=== PATIENT | male | born 1990 ===

== ENCOUNTER 2018-03-06 06:34 | Emergency (ER) | payer MEDICAID, OTHER ==
[2018-03-06 06:42] VITALS: BMI 30.4
[2018-03-06 06:45] VITALS: RESP 16; TEMP 98.7
[2018-03-06] MEDS ORDERED: Tetanus Immune Globulin 250 Units Inj IM ONE (07:18)
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
[2018-03-06] MEDS ORDERED: TDAP Vaccine 0.5 mL Syr IM ONE (07:33)
[2018-03-06 09:30] VITALS: O2SAT 99
--- NOTE | 2018-03-06 10:29 | RAD ---
PROCEDURE: Right Index finger radiographs. HISTORY: finger trauma COMPARISON: None. TECHNIQUE: AP radiograph of the right hand, as well as spot oblique and lateral images of index finger were obtained. FINDINGS: RIGHT INDEX FINGER: Normal right index finger, without fracture or focal lesion. Remainder of the right hand (as seen on the AP view) grossly intact. JOINTS: Normal. SOFT TISSUES: Focal soft tissue swelling proximal interphalangeal joint region OTHER FINDINGS: None. IMPRESSION: Soft tissue swelling without acute articular or osseous abnormality.
[2018-03-06 10:46] VITALS: BP 130/80; PULSE 80
== END 2018-03-06 10:01 | disposition home or self-care (01) ==
LOC: ED 06:34
DX: S61.210A Laceration without foreign body of right index finger without damage to nail, initial encounter (principal); W45.8XXA Other foreign body or object entering through skin, initial encounter; Y92.9 Unspecified place or not applicable; Z23 Encounter for immunization

== ENCOUNTER 2018-03-21 14:14 | Emergency (ER) | payer MEDICAID, OTHER ==
[2018-03-21 14:15] VITALS: BMI 30.4
--- NOTE | 2018-03-21 14:31 | ED PDOC ---
Arrival/HPI - General Time Seen by Provider: 03/21/18 14:17 Historian: Patient - History of Present Illness Narrative History of Present Illness (Text): 03/21/18 14:22 27 y/o male, no significant pmh, nkda, here for the suture removal from the rt. hand 2nd digit s/p sutured about 13 days ago. Pt. stated that the wound is healing well and dry, admits feeling stiffing on the rt. hand 2nd digit, no other medical or psychological complaints. Past Medical History - Provider Review Nursing Documentation Reviewed: Yes - Psychiatric Hx Substance Use: No - Anesthesia Hx Anesthesia: No Family/Social History - Physician Review Nursing Documentation Reviewed: Yes Family/Social History: Unknown Family HX Smoking Status: Light Smoker < 10 Cigarettes Daily Hx Alcohol Use: Yes Hx Substance Use: No Allergies/Home Meds Allergies/Adverse Reactions: Allergies retana Allergy (Verified 03/06/18 06:43) SHORTNESS OF BREATH Review of Systems - Review of Systems Constitutional: absent: Fatigue, Fevers Eyes: absent: Vision Changes ENT: absent: Hearing Changes Respiratory: absent: SOB, Cough Cardiovascular: absent: Chest Pain Gastrointestinal: absent: Abdominal Pain, Nausea, Vomiting Musculoskeletal: absent: Arthralgias, Back Pain Skin: Other (suture rt. hand 2nd digit). absent: Rash Neurological: absent: Headache, Dizziness Psychiatric: absent: Anxiety, Depression Physical Exam Vital Signs Reviewed: Yes - Systems Exam Head: Present: Atraumatic, Normocephalic Pupils: Present: PERRL Extroacular Muscles: Present: EOMI Conjunctiva: Present: Normal Mouth: Present: Moist Mucous Membranes Neck: Present: Normal Range of Motion Respiratory/Chest: Present: Clear to Auscultation, Good Air Exchange. No: Respiratory Distress, Accessory Muscle Use Cardiovascular: Present: Regular Rate and Rhythm, Normal S1, S2. No: Murmurs Abdomen: No: Tenderness, Distention, Peritoneal Signs Back: Present: Normal Inspection Upper Extremity: Present: Normal Inspection, Other (Rt. hand 2nd digit: ventral aspect visible 6 sutures with well intact with scarring and thick skin over it, able to bend and extend the rt. hand 2nd digit DIPJ/PIPJ/MCPJ, FROM without limitation, sensation intact but the patient stated that he feels mild decrease sensation on the rt. hand 2nd digit medial aspect, motor 5/5, neurovascular intact. ). No: Cyanosis, Edema Lower Extremity: Present: Normal Inspection. No: Edema Neurological: Present: GCS=15, CN II-XII Intact, Speech Normal, Motor Func Grossly Intact, Gait Normal, Memory Normal Skin: Present: Warm, Dry, Normal Color. No: Rashes Psychiatric: Present: Alert, Oriented x 3, Normal Insight, Normal Concentration Medical Decision Making ED Course and Treatment: 03/21/18 14:37 -6 sutures removed with success, no more remaining suture, will need hand surgeon follow up. -Discharge home with education on follow up with your own pmd and hand specialist within 2 days, return to the ER for any new or worsening signs or symptoms. - PA / MANAGER FAMILY / Resident Statement MD/DO has reviewed & agrees with the documentation as recorded. Disposition/Present on Arrival - Present on Arrival Any Indicators Present on Arrival: No History of DVT/PE: No History of Uncontrolled Diabetes: No Urinary Catheter: No History of Decub. Ulcer: No History Surgical Site Infection Following: None - Disposition Have Diagnosis and Disposition been Completed?: Yes Diagnosis: Encounter for removal of sutures Disposition: HOME/ ROUTINE Disposition Time: 14:38 Patient Plan: Discharge Condition: GOOD Additional Instructions: -Discharge home with education on follow up with your own pmd and hand specialist within 2 days, return to the ER for any new or worsening signs or symptoms. Referrals: Diego Ashley MD [Staff Provider] - Follow up with primary Forms: WORK NOTE
[2018-03-21 14:39] VITALS: BP 120/67; TEMP 98.2
[2018-03-21 14:49] VITALS: PULSE 82; RESP 16; O2SAT 99
== END 2018-03-21 14:49 | disposition home or self-care (01) ==
LOC: ED 14:14
DX: Z48.02 Encounter for removal of sutures (principal)